=== PATIENT | male | born 1955 | race Caucasian/White ===

== ENCOUNTER → 2017-07-17 | Outpatient (CLI) | payer OTHER ==
[2017-07-17 11:08] LABS: BASOPHILS ABSOLUTE AUTO 0.03 K/mm3 (0.00-0.23); BASOPHILS PERCENT AUTO 0 % (0-2); EOSINOPHILS ABSOLUTE AUTO 0.01 K/mm3 (0.00-0.68); EOSINOPHILS PERCENT AUTO 0 % (0-6); Hematocrit 46.4 % (37.0-53.0); Hemoglobin 15.9 g/dL (13.5-17.5); IMMATURE GRAN ABSOLUTE AUTO 0.06 K/mm3 (0.00-0.10); IMMATURE GRAN PERCENT AUTO 1 % (0-1); LYMPHOCYTES ABSOLUTE AUTO 2.17 K/mm3 (0.84-5.20); LYMPHOCYTES PERCENT AUTO 24 % (21-46); MONOCYTES ABSOLUTE AUTO 1.15 K/mm3 (0.16-1.47); MONOCYTES PERCENT AUTO 13 % (4-13); Mean Corpuscular HGB 32.5 pg (26.0-34.0); Mean Corpuscular HGB Conc 34.3 g/dL (31.5-36.5); Mean Corpuscular Volume 95 fL (80-100); Mean Platelet Volume 10.8 fL (9.1-12.4); NEUTROPHILS ABSOLUTE AUTO 5.64 K/mm3 (1.96-9.15); NEUTROPHILS PERCENT AUTO 62 % (41-73); Platelet Count 235 K/mm3 (150-400); RDW Coefficient Variation 14.1 % (11.7-14.2); RDW Standard Deviation 49.3 fL (35.1-46.3); Red Blood Cell Count 4.89 M/mm3 (4.30-5.90); White Blood Cell Count 9.06 K/mm3 (4.00-11.30)
[2017-07-17 11:19] LABS: Alanine Aminotransfer (ALT/SGP 124 U/L (12-78); Albumin, Blood 4.2 g/dL (3.4-5.0); Albumin/Globulin Ratio 0.9 (0.8-1.8); Alk Phos 97 U/L (40-126); Anion Gap 13 mmol/L (6-16); Aspartate Aminotrans (AST/SGOT 61 U/L (12-37); Bilirubin, Total 1.4 mg/dL (0.1-1.0); Blood Urea Nitrogen 20 mg/dL (8-24); Bun/Creatinine Ratio 17.7 (12.0-20.0); CO2, Blood 22 mmol/L (21-32); Chloride, Blood 101 mmol/L (98-108); Creatinine, Blood 1.13 mg/dL (0.60-1.20); Globulin, Blood 4.5 g/dL (2.2-4.0); Glomerular Filtration Rate >60 (60-); Glucose, Blood 232 mg/dL (70-99); Potassium, Blood 4.1 mmol/L (3.5-5.5); Sodium, Blood 136 mmol/L (136-145); Total Protein, Blood 8.7 g/dL (6.4-8.2)
== END | disposition home or self-care (01) ==
LOC: LAB EV 11:02
PROVIDERS: General Practice
DX: B18.2 Chronic viral hepatitis C (principal)
CPT/HCPCS: 80053; 85025

== ENCOUNTER → 2017-12-08 | Outpatient (CLI) | payer OTHER | END | disposition home or self-care (01) | LOC: LAB SHORT 09:28 → LAB EV 09:28 | DX: J02.9 Acute pharyngitis, unspecified (principal) | CPT/HCPCS: 87070 ==

== ENCOUNTER → 2020-08-04 | Outpatient (CLI) | payer OTHER ==
[~2020-08-04] MED LIST: CYAN500; GLUCHON; LISI20 PO; PRAV20 PO; TAMS.4ER PO; TRAM50 PO
== END | disposition home or self-care (01) ==
LOC: LAB EV 12:07 → LAB SHORT 12:07
DX: J02.9 Acute pharyngitis, unspecified (principal)
CPT/HCPCS: 87081

== ENCOUNTER 2020-11-07 07:58 | Day surgery (SDC) | payer OTHER ==
[~2020-11-07] VITALS: Ht 188 cm; Wt 106.5 kg
[~2020-11-07 07:58] MED LIST changes: -CYAN500; -GLUCHON
[2020-11-07] MEDS ORDERED: GLUCHON (08:47)
[2020-11-07] MEDS ORDERED: CYAN500 (08:47)
== END 2020-11-07 10:16 | disposition home or self-care (01) ==
LOC: ORSCSDS 07:58
PROVIDERS: Orthopaedic Surgery
PROC: 01N50ZZ Release Median Nerve, Open Approach (ICD-10-PCS; principal; 2020-11-07 09:30)
DX: G56.02 Carpal tunnel syndrome, left upper limb (principal); I10 Essential (primary) hypertension; E11.9 Type 2 diabetes mellitus without complications; E66.9 Obesity, unspecified; Z68.30 Body mass index [BMI] 30.0-30.9, adult
CPT/HCPCS: J0690; J2250; J2704; J3010; J7120

== ENCOUNTER 2021-12-10 21:36 | Emergency (ER) | payer OTHER ==
[~2021-12-10] VITALS: Ht 190.5 cm; Wt 106.6 kg
[~2021-12-10 21:36] MED LIST changes: +CYAN500; +GLUCHON
[2021-12-10 22:45] LABS: Influenza A, PCR NEGATIVE (NEGATIVE); Influenza B, PCR NEGATIVE (NEGATIVE); Resp Syncytial Virus, PCR NEGATIVE (NEGATIVE); SARS-Cov-2 (COVID-19) PCR, MMC POSITIVE (NEGATIVE)
== END 2021-12-11 01:21 | disposition home or self-care (01) ==
LOC: ER 21:36
PROVIDERS: Student in an Organized Health Care Education/Training Program
DX: U07.1 COVID-19 (principal); I10 Essential (primary) hypertension; E11.9 Type 2 diabetes mellitus without complications; Z87.891 Personal history of nicotine dependence; Z88.5 Allergy status to narcotic agent; Z79.899 Other long term (current) drug therapy
CPT/HCPCS: 0241U; 96372; 99284-25; J1885; J7030; M0222

== ENCOUNTER 2023-01-03 12:24 | Emergency (ER) | payer OTHER ==
[~2023-01-03] VITALS: Ht 188 cm; Wt 108.9 kg
[2023-01-03 12:28] VITALS: BP 109/58
[2023-01-03] MEDS ORDERED: AMOCLA875 PO (14:12)
[2023-01-03] MEDS ORDERED: Percocet 5-3251 EACH PO (14:12)
== END 2023-01-03 17:33 | disposition home or self-care (01) ==
LOC: ER 12:24
DX: S68.123A Partial traumatic metacarpophalangeal amputation of left middle finger, initial encounter (principal); S68.125A Partial traumatic metacarpophalangeal amputation of left ring finger, initial encounter; I10 Essential (primary) hypertension; E78.5 Hyperlipidemia, unspecified; Z88.5 Allergy status to narcotic agent; Z23 Encounter for immunization; Z79.899 Other long term (current) drug therapy; W31.2XXA Contact with powered woodworking and forming machines, initial encounter
CPT/HCPCS: 20600; 73130; 90471; 96365-59; 96375-59; 99284-25; A9270; J0690; J1170; J3010

== ENCOUNTER 2024-05-23 18:06 | Observation (INO) | payer OTHER ==
[~2024-05-23] VITALS: Ht 188 cm; Wt 108.9 kg
[~2024-05-23 18:06] MED LIST changes: +AMOCLA875 PO; +Percocet 5-3251 EACH PO
[2024-05-23 19:01] VITALS: BP 111/11
[2024-05-23] MEDS ORDERED: PIOGLITAZONE HC15 MG PO ×2 (19:17)
[2024-05-23] MEDS ORDERED: REMERON30 M9 PO ×2 (19:18)
[2024-05-23] MEDS ORDERED: LORazepam 1 MG Tab PO ONE (19:30)
[2024-05-23 20:06] LABS: BASOPHILS ABSOLUTE AUTO 0.06 K/mm3 (0.00-0.23); BASOPHILS PERCENT AUTO 0 % (0-2); EOSINOPHILS ABSOLUTE AUTO 0.08 K/mm3 (0.00-0.68); EOSINOPHILS PERCENT AUTO 1 % (0-6); Hematocrit 43.5 % (37.0-53.0); Hemoglobin 15.1 g/dL (13.5-17.5); IMMATURE GRAN PERCENT AUTO 1 % (0-1); LYMPHOCYTES PERCENT AUTO 35 % (21-46); MONOCYTES ABSOLUTE AUTO 1.03 K/mm3 (0.16-1.47); MONOCYTES PERCENT AUTO 8 % (4-13); Mean Corpuscular HGB 31.8 pg (26.0-34.0); Mean Corpuscular HGB Conc 34.7 g/dL (31.5-36.5); Mean Corpuscular Volume 92 fL (80-100); Mean Platelet Volume 10.4 fL (9.1-12.4); NEUTROPHILS ABSOLUTE AUTO 7.66 K/mm3 (1.96-9.15); NEUTROPHILS PERCENT AUTO 56 % (41-73); Platelet Count 321 K/mm3 (150-400); RDW Coefficient Variation 13.5 % (11.7-14.2); RDW Standard Deviation 46.4 fL (35.1-46.3); Red Blood Cell Count 4.75 M/mm3 (4.30-5.90); White Blood Cell Count 13.73 K/mm3 (4.00-11.30)
[2024-05-23 20:27] LABS: Ethanol (Alcohol), Blood, Med <3 mg/dL
[2024-05-23 20:28] LABS: Alanine Aminotransfer (ALT/SGP 69 U/L (12-78); Albumin, Blood 4.6 g/dL (3.4-5.0); Albumin/Globulin Ratio 1.3 (0.8-1.8); Alk Phos 86 U/L (50-136); Anion Gap 12 mmol/L (3-11); Aspartate Aminotrans (AST/SGOT 43 U/L (12-37); Bilirubin, Total 2.4 mg/dL (0.1-1.0); Blood Urea Nitrogen 21 mg/dL (8-24); Bun/Creatinine Ratio 26.4 (12.0-20.0); CO2, Blood 22 mmol/L (21-32); Calcium, Blood 10.5 mg/dL (8.5-10.1); Chloride, Blood 111 mmol/L (98-108); Creatinine, Blood 0.79 mg/dL (0.60-1.20); Globulin, Blood 3.6 g/dL (2.2-4.0); Glomerular Filtration Rate 96 (60-); Glucose, Blood 118 mg/dL (70-99); Potassium, Blood 3.8 mmol/L (3.5-5.5); Sodium, Blood 141 mmol/L (136-145); Total Protein, Blood 8.2 g/dL (6.4-8.2)
[2024-05-23 20:29] LABS: Acetaminophen, Random <2.0 ug/mL (10.0-30.0); Salicylate <1.7 mg/dL (2.8-20.0)
[2024-05-23 21:09] LABS: Source, Urine Clean Catch
[2024-05-23 21:13] LABS: Appearance, Urine Clear (Clear); Bilirubin, Urine Neg (Neg); Blood, Urine 1+ (Neg); Color, Urine Yellow (P-Yellow); Glucose Qualitative, Urine 1+ (Neg); Ketones, Urine 2+ (Neg); Leukocyte Esterase, Urine Neg (Neg); Nitrite, Urine Neg (Neg); Protein, Urine 2+ (Neg); Urobilinogen, Urine 1+ (Normal); pH, Urine 6.5 (5.0-8.0)
[2024-05-23 21:20] LABS: Bacteria Rare /hpf; Mucus Light (0-Heavy); Squamous Epithelial Cells Rare /hpf (Few); White Blood Cells, Urine 0-2 /hpf (0-5)
[2024-05-23 21:40] LABS: Influenza A, PCR NEGATIVE (NEGATIVE); Influenza B, PCR NEGATIVE (NEGATIVE); Resp Syncytial Virus, PCR NEGATIVE (NEGATIVE); SARS-Cov-2 (COVID-19) PCR, MMC NEGATIVE (NEGATIVE)
[2024-05-23 22:05] LABS: U Amphetamine Screen Not Detected; U Barbituate Screen Not Detected; U Benzodiazapine Screen DETECTED; U Buprenorphine Screen Not Detected; U Cannabinoids Screen DETECTED; U Cocaine Screen Not Detected; U Methadone Screen Not Detected; U Methamphetamine Screen Not Detected; U Opiates Screen Not Detected; U Oxycodone Screen Not Detected; U Phencyclidine Screen Not Detected
== END 2024-05-24 12:09 | disposition other institution (70) ==
LOC: ER 18:06 → EOR 18:07
PROVIDERS: Physician Assistant; ADMIT Student in an Organized Health Care Education/Training Program
DX: F32.9 Major depressive disorder, single episode, unspecified (principal); R45.851 Suicidal ideations; I10 Essential (primary) hypertension; E11.9 Type 2 diabetes mellitus without complications; Z79.84 Long term (current) use of oral hypoglycemic drugs; Z79.899 Other long term (current) drug therapy; Z88.5 Allergy status to narcotic agent
CPT/HCPCS: 0241U; 80053; 80320; 81001; 82947; 85025; 86592; 93005; 93010; 99285-25; A9270; G0378; G0480

== ENCOUNTER 2024-05-24 08:36 | Inpatient (IN) | payer OTHER ==
[~2024-05-24] VITALS: Ht 188 cm; Wt 108.9 kg
[~2024-05-24 08:36] MED LIST changes: +PIOGLITAZONE HC15 MG PO; +REMERON30 M9 PO
[2024-05-24] MEDS ORDERED: HydrOXYzine Pamoate 50 MG Cap PO PRN (11:30)
[2024-05-24] MEDS ORDERED: Ondansetron 4 MG SoluTab MM PRN (11:30)
[2024-05-24] MEDS ORDERED: Ibuprofen 600 MG Tab PO PRN (11:30)
[2024-05-24] MEDS ORDERED: Acetaminophen 325 MG TABLET PO PRN (11:30)
[2024-05-24] MEDS ORDERED: Calcium Carbonate 500 MG Tab Chew PO PRN (11:30)
[2024-05-24] MEDS ORDERED: Aluminum Hydroxide 320MG/5ML 473 ML PO PRN (11:30)
[2024-05-24] MEDS ORDERED: Melatonin 3 MG Tab PO PRN (11:35)
[2024-05-24] MEDS ORDERED: FLU VACC TS2024-25(6MOS UP)/PF 45 MCG/0.5 ML SYRINGE IM SCH (11:35)
[2024-05-24] MEDS ORDERED: Polyethylene Glycol 3350 17 gm PO PRN (11:35)
[2024-05-24] MEDS ORDERED: TraZODone HCl 50 MG Tab PO PRN (11:35)
[2024-05-24 12:10] VITALS: BP 133/93
[2024-05-24 12:33] VITALS: BP 133/93
--- NOTE | 2024-05-24 14:59 | NUR ---
ADMIT PATIENT ARRIVED TO [facility] FROM ED, PATIENT ABLE TO ANSWER QUESTIONS AND ABLE TO CHANGE INTO SCRUBS WITHOUT DIFFICULTY. PATIENT C/O LOW BACK PAIN MAKING WALKING SLIGHTLY UNSTEADY GAIT. PATIENT MEDICATED WITH IBUPROFEN WITH GOOD PAIN RELIEF. PATIENT ADMIT FOR SI WITH A PLAN PATIENT, DENIES SI AT THIS TIME, VERBALIZED THAT HE WAS ABLE TO STOP SELF AND CALL FAMILY FOR HELP. PATIENT BECOMING VERY TEARFUL DURING ADMIT QUESTIONS. "I JUST WANT TO GO HOME AND HAVE IT GO BACK THE WAY IT USED TO BE" PATIENT VERBALIZED THAT HE RECENTLY FOUND OUT THAT HIS HAS BEEN HAVING AN AFFAIR FOR THE LAST 2 YEARS. PATIENT VERBALIZED THAT THERE IS FREQUENT VERBAL ARGUMENTS WITH HIS . PATIENT DENIES HI OR HALLUCINATIONS. PATIENT CONTINUES TO BE TEARFUL AND EASILY BECOMING UPSET WITH CONVERSATION, HYDROXYZINE GIVEN.
--- NOTE | 2024-05-24 18:06 | NUR ---
SHIFT SUMMARY PATIENT DENIES SI, HI, AVH. ATTENDING GROUP AND VISITING WITH PEERS. PATIENT VERBALIZED THAT HE HIS "FEELING BETTER" ASKING FOR SOMETHING TO READ, PATIENT ABLE TO CHOOSE BOOK WITHOUT DIFFICULTY. PATIENT VERBALIZED PAIN TO LOW BACK RETURNING RATING 6/10 TYLENOL GIVEN.
[2024-05-24] MEDS ORDERED: Pravastatin Sodium 20 MG Tab PO SCH (21:00)
[2024-05-24] MEDS ORDERED: Mirtazapine 30 MG Tab PO SCH (21:00)
[2024-05-24] MEDS ORDERED: Tamsulosin HCl 0.4 MG Cap PO SCH (21:00)
[2024-05-25 00:10] VITALS: BP 129/102
--- NOTE | 2024-05-25 04:28 | NUR ---
PATIENT WAS IN THE GROUP ROOM WATCHING [employer] MOVIES AT THE BEGINNING OF THE SHIFT, WITH PEERS AND STAFF. HE PARTICIPATED IN SNACK AND FOLLOW UP. HE WAS COMPLIANT WITH EVENING MEDICATION ADMINISTRATION. HE WENT TO BED SHORTLY AFTER SNACK AND WAS NOTED TO BE RESTING QUIETLY WITH EYES CLOSED AND RESPIRATIONS CONFIRMED. HE WAS UP TWICE DURING THE NIGHT, WANTING HIS HEARING AIDS CHARGED AND WANTING SOMETHING FOR ANXIETY. HE WAS GIVEN VISTARIL WITH GOOD EFFECT. HE DENIED SUICIDAL IDEATION OR THOUGHTS OF SELF HARM. CONTINUING TO MONITOR FOR SAFETY WITH Q15 MINUTE CHECKS.
[2024-05-25 08:12] VITALS: BP 136/86
[2024-05-25] MEDS ORDERED: Cyanocobalamin 100 MCG Tab PO SCH (09:00)
[2024-05-25] MEDS ORDERED: GLUCOSAMINE PO SCH (09:00)
[2024-05-25] MEDS ORDERED: Multivitamins 1 Tab PO SCH (09:00)
[2024-05-25] MEDS ORDERED: Lisinopril 20 MG Tab PO SCH (09:00)
[2024-05-25] MEDS ORDERED: CHONDROITIN PO SCH (09:00)
[2024-05-25] MEDS ORDERED: Pioglitazone HCl 15 MG Tab PO SCH (09:00)
--- NOTE | 2024-05-25 10:24 | NUR ---
PATIENT VERBALIZED THAT WHEN HE THINKS OF HIS AND ABOUT HIS SITUATION AT HOME, HE FEELS ANXIOUS AND IF HE IS GOING TO LOOSE CONTROL. PATIENT REQUESTING SOMETHING TO HELP HIM RELAX, MEDICATED WITH HYDROXYZINE.
[2024-05-25] MEDS ORDERED: TraMADol HCl 50 MG Tab PO PRN (10:55)
[2024-05-25] MEDS ORDERED: BusPIRone HCl 5 MG Tab PO SCH (14:00)
--- NOTE | 2024-05-25 15:02 | NUR ---
IMPORTANT HOSPITAL DISCHARGE APPOINTMENT INFORMATION [facility] is aware patient is admitted to [facility] and has placed behavioral health referral. Behavioral health team will contact patient to schedule hospital discharge appointment once patient is discharged home. 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
--- NOTE | 2024-05-25 17:53 | NUR ---
SHIFT SUMMARY PATIENT AWAKE AND ATTENDING ALL MEALS AND GROUPS TODAY. DENIES SI, HI, AND AVH. CONTINUES TO BECOME TEARFUL DURING CONVERSATIONS REGARDING HOME SITUATION AND FAMILY DYNAMICS. FIRST DOSE OF BUSPAR GIVEN. MEDICATED FOR CHRONIC BACK PAIN PER EMAR, HOME DOSE OF TRAMADOL STARTED. HAD A VISIT WITH HIS 2 DAUGHTERS AND PASTORAL CARE TODAY.
--- NOTE | 2024-05-25 18:12 | NUR ---
Spiritual Care Pt. Request As a result of a spiritual care request I met with the Pt. in a [facility] Mt[facility] room. Pt. is pleasant. While initially considering matters of randy and belief a lengthy portion of the visit focused of life review and story which led to Corey's admission to the [facility]. With theraputic listening and a calming presence the Pt. shared a story of brokenness and redemption. The Pt. verbalized that he knew he needed to get help. Pastoral care and words of comfort are given. The Pt. displayed evidence of trust and openness, with NO evidence of anxiety. Prayed with Pt. Shook his hand. Pt. verbalized gratitude for the spiritual care visit.
[2024-05-25 22:48] VITALS: BP 13/90
--- NOTE | 2024-05-26 04:23 | NUR ---
SHIFT SUMMARY PT PRESENT IN GROUP ROOM AT START OF SHIFT, INTERACTIVE AND TALKATIVE WITH STAFF AND PEERS. PT DENIES ANY SI, HI OR AVH. HE STATES THAT HIS IS GOING TO VISIT TODAY AND HE IS LOOKING FORWARD TO IT. PT HAD EVENING SNACK, WAS COMPLIANT WITH MEDICATIONS, RECEIVED PRN TRAZODONE AND MELATONIN. HE WENT TO BED AROUND 2114 AND HAS APPEARED TO SLEEP WELL, WITH RESPIRATIONS CONFIRMED. Q15 MINUTE CHECKS TO CONTINUE BY STAFF PER UNIT PROTOCOL.
[2024-05-26 07:41] VITALS: BP 118/90
--- NOTE | 2024-05-26 09:36 | NUR ---
SHIFT NOTES: PT DENIED SI, HI, AVH AND ANXIETY. PT ENDORSED BACK PAIN 6/10w AND WAS GIVEN TRAMODOL 50MG, WHICH WAS EFFECTIVE IN LOWERING HIS PAIN LEVEL TO 3/10w. PT REPORTED, "I FEEL HOPEFUL...I FEEL REBORN AFTER COMING HERE. I KNEW I NEEDED HELP...I COULDN'T WRESTLE WITH MY PROBLEMS ANYMORE." PT IS PLEASANT, HIS AFFECT IS EUTHYMIC, HE IS PARTICIPATING IN GROUPS AND IS ACTIVE IN THE PT MILIEU.
--- NOTE | 2024-05-26 10:52 | NUR ---
HOSPITAL DISCHARGE APPOINTMENT Patient is scheduled for behavioral health appointment with Brea Lane NP on 05/29/24 at 0900 // [facility] [address] [place], [place] [address] // [phone] CHLOE entered information into patient's discharge packet
--- NOTE | 2024-05-26 15:29 | NUR ---
PT'S WAS HERE FOR A VISIT, SHE LEFT SOMEWHAT ABRUPTLY. SRINIVAS WAS IN GOOD SPIRITS WHEN SHE LEFT. HE IS PRESENTLY WATCHING A MOVIE AND TALKING WITH STAFF.
[2024-05-26 20:10] VITALS: BP 135/86
--- NOTE | 2024-05-27 05:12 | NUR ---
SHIFT NOTE: PT PLEASANT AND INTERACTING WITH STAFF AND PEERS WELL THIS SHIFT. NAD, HE DENIES ANY SI/HI/AVH. HE EXPRESSES HIS HAPPINESS TO D/C HOME TOMORROW. HE ATE HIS SNACK AND WAS COMPLIANT WITH HIS MEDICATIONS THIS SHIFT. HE VISITED WITH PEERS WHILE WATCHING TV BEFORE HE WENT TO BED. PT STAYED IN BED THROUGHOUT THE SHIFT.
[2024-05-27 08:10] VITALS: BP 104/79
[2024-05-27] MEDS ORDERED: BUSP5 PO ×2 (10:40)
--- NOTE | 2024-05-27 11:31 | NUR ---
DISCHARGE: PT ALERT, ORIENTED AND COOPERATIVE. DENIES SI, HI AND AVH. PT VERBALIZED BEING EXCITED TO GO AND VERY GRATEFUL FOR [facility]. PT PROVIDED WITH DISCHARGE INSTRUTIONS AND DENIED QUESTIONS. PT FAMILY BROUGHT CLOTHING, NO BELONGINGS STORED. PT AMBULATED OUT OF DEPT WITH DISCHARGE INSTRUCTIONS IN HAND. DAUGHTERS HERE FOR RIDE HOME.
== END 2024-05-27 11:31 | disposition home or self-care (01) | DRG 885 ==
LOC: BHU 08:36
PROVIDERS: ADMIT Psychiatry & Neurology Psychiatry
DX: F33.2 Major depressive disorder, recurrent severe without psychotic features (principal); E11.9 Type 2 diabetes mellitus without complications; I10 Essential (primary) hypertension; F43.21 Adjustment disorder with depressed mood; Z88.5 Allergy status to narcotic agent; Z79.899 Other long term (current) drug therapy
CPT/HCPCS: A9270